=== PATIENT | male | born 1950 | race Caucasian/White ===

== ENCOUNTER 2017-03-15 09:41 | Inpatient (IN) | payer OTHER, MEDICARE ==
[~2017-03-15] VITALS: Ht 177.8 cm; Wt 100.0 kg
[2017-03-15 10:47] LABS: BASOPHILS % (AUTO) 0.4 % (0-1); EOSINOPHILS # (AUTO) 0.3 X10'3 (0-0.9); EOSINOPHILS % (AUTO) 2.9 % (0-6); HEMATOCRIT 42.7 % (42.0-52.0); HEMOGLOBIN 14.3 g/dl (14.0-17.9); LYMPHOCYTES # (AUTO) 1.9 X10'3 (1.1-4.8); LYMPHOCYTES % (AUTO) 20.2 % (21-51); MEAN CORPUSCULAR HEMOGLOBIN 29.7 PG (27.0-31.0); MEAN CORPUSCULAR HGB CONC 33.6 % (33.0-36.5); MEAN CORPUSCULAR VOLUME 88.4 FL (78-98); MEAN PLATELET VOLUME 10.3 FL (7.4-10.4); MONOCYTES % (AUTO) 11.3 % (2-12); NEUTROPHILS # (AUTO) 6.1 X10'3 (1.8-7.7); NEUTROPHILS % (AUTO) 65.2 % (42-75); PLATELET COUNT 194 X10'3 (140-440); RED BLOOD COUNT 4.83 X10'6 (4.70-6.10); RED CELL DISTRIBUTION WIDTH 13.1 % (11.5-14.5); WHITE BLOOD COUNT 9.3 X10'3 (4.5-11.0)
[2017-03-15 10:52] LABS: ALANINE AMINOTRANSFERASE 31 U/L (12-78); ALBUMIN 3.1 G/DL (3.4-5.0); ALKALINE PHOSPHATASE 58 IU/L (46-116); ANION GAP 6 (8-16); ASPARTATE AMINO TRANSFERASE 13 U/L (10-37); BILIRUBIN,TOTAL 0.5 MG/DL (0.1-1.0); BLOOD UREA NITROGEN 14 MG/DL (7-18); BUN/CREATININE RATIO 13.7 (5.4-32.0); CALCIUM 8.3 MG/DL (8.5-10.1); CHLORIDE 107 MMOL/L (99-107); CREATININE 1.02 MG/DL (0.60-1.10); GLUCOSE 163 MG/DL (70-104); POTASSIUM 3.7 MMOL/L (3.5-5.1); SODIUM 138 MMOL/L (135-145); TOTAL CARBON DIOXIDE 24.6 MMOL/L (24-32); TOTAL PROTEIN 6.2 G/DL (6.4-8.2); eGFR 73 ML/MIN
[2017-03-15 10:58] LABS: MAGNESIUM 1.9 MG/DL (1.5-2.4)
[2017-03-15] MEDS ORDERED: nitroGLYCERIN 0.4mg SUBLingual tab SL PRN ×2 (11:55→12:10)
[2017-03-15] MEDS ORDERED: magnesium 4gm in 100ml NS 100 ML IV PRN (11:55)
[2017-03-15] MEDS ORDERED: potassium Cl 20 mEq SR tablet PO PRN ×2 (11:55)
[2017-03-15] MEDS ORDERED: HYDROcodone/acetaminophen 5mg/325mg tablet PO PRN (11:55)
[2017-03-15] MEDS ORDERED: metoprolol tartrate 1mg/ml inj IV PRN (11:55)
[2017-03-15] MEDS ORDERED: magnesium Cl slow-release 64mg tablet PO PRN (11:55)
[2017-03-15] MEDS ORDERED: HYDROcodone/acetaminophen 10/325mg tab PO PRN (11:55)
[2017-03-15] MEDS ORDERED: aminophylline 250mg/10ml inj. IV PRN (11:55)
[2017-03-15] MEDS ORDERED: mag hydrox/Alum hydrox/simeth 30ml oral suspension PO PRN (11:55)
[2017-03-15] MEDS ORDERED: magnesium hydroxide 30ml (MOM) UD suspension PO PRN (11:55)
[2017-03-15] MEDS ORDERED: potassium Cl 40MEQ/NS 500ml 500 ML IV PRN ×2 (11:55)
[2017-03-15] MEDS ORDERED: ondansetron/PF 4mg/2ml inj IV PRN (11:55)
[2017-03-15] MEDS ORDERED: magnesium 2GM in 50ml NS 50 ML IV PRN (11:55)
[2017-03-15] MEDS ORDERED: acetaminophen 325mg tablet PO PRN ×2 (11:55)
[2017-03-15] MEDS ORDERED: regadenoson 0.4mg/5ml syringe IV ONE (11:55)
[2017-03-15] MEDS ORDERED: GLIP5TAB13 PO (11:58)
[2017-03-15] MEDS ORDERED: METF500T PO (11:58)
[2017-03-15] MEDS ORDERED: ACAR100T3 PO (11:58)
[2017-03-15] MEDS ORDERED: PRAZ5CAP PO (11:58)
[2017-03-15] MEDS ORDERED: AMLO2.5T2 PO (11:58)
[2017-03-15] MEDS ORDERED: TRAZ-146 PO (11:58)
[2017-03-15] MEDS ORDERED: NITR0.4T51 SL (11:58)
[2017-03-15] MEDS ORDERED: ROSU40TA PO (11:58)
[2017-03-15] MEDS ORDERED: DULO-31 PO (11:58)
[2017-03-15] MEDS ORDERED: ALPR-624 PO (11:58)
[2017-03-15] MEDS ORDERED: ISOS10TA8 PO (11:58)
[2017-03-15] MEDS ORDERED: LOSA25TA96 PO (11:58)
[2017-03-15] MEDS ORDERED: CHLO50TA PO (11:58)
[2017-03-15] MEDS ORDERED: LANTUS SQ (12:03)
[2017-03-15] MEDS ORDERED: INSU100V13 SQ (12:03)
[2017-03-15] MEDS ORDERED: ALPRAZolam 0.5mg tablet PO PRN (12:10)
[2017-03-15] MEDS ORDERED: MESSAGE TO PHARMACY PO ONE (12:15)
[2017-03-15] MEDS ORDERED: glucagon, human recombinant 1mg kit SUBCUT PRN (12:15)
[2017-03-15] MEDS ORDERED: insulin Lispro (HumaLOG) vial - multi-dose SQ SCH (12:15)
[2017-03-15] MEDS ORDERED: dextrose ORAL solution 15 GM/59 ML bottle PO PRN ×2 (12:15)
[2017-03-15] MEDS ORDERED: dextrose 50%-water 50ml dispensing syringe IV PRN ×2 (12:15)
[2017-03-15] MEDS: normal saline 1000ml 1,000 ML IV SCH ×2 (12:23→21:55)
[2017-03-15 12:31] LABS: HEMOGLOBIN A1C 9.6 % (4.5-6.2)
[2017-03-15] MEDS ORDERED: ISOS120T9 PO (12:46)
[2017-03-15] MEDS ORDERED: NIT5P TD (15:12)
[2017-03-15 19:45] VITALS: BP 128/71
[2017-03-15] MEDS: heparin, porcine 5000 units/ml vial SQ SCH (20:44)
[2017-03-15] MEDS ORDERED: ISOSORBIDE MONONITRATE 120 MG PO SCH (21:00)
[2017-03-15] MEDS ORDERED: isosorbide mononitrate 30mg tab.SR.24H PO SCH (21:00)
[2017-03-15] MEDS ORDERED: Insulin Detemir pen SQ SCH (21:00)
[2017-03-15] MEDS ORDERED: prazosin 1mg capsule PO SCH (21:00)
[2017-03-15] MEDS ORDERED: traZODone 50mg tablet PO SCH (21:00)
[2017-03-16] VITALS: BP 133/71
[2017-03-16] MEDS: normal saline 1000ml 1,000 ML IV SCH (01:32)
[2017-03-16 05:58] LABS: BASOPHILS % (AUTO) 0.2 % (0-1); EOSINOPHILS # (AUTO) 0.2 X10'3 (0-0.9); EOSINOPHILS % (AUTO) 2.4 % (0-6); HEMATOCRIT 39.4 % (42.0-52.0); HEMOGLOBIN 13.3 g/dl (14.0-17.9); LYMPHOCYTES # (AUTO) 1.9 X10'3 (1.1-4.8); LYMPHOCYTES % (AUTO) 20.9 % (21-51); MEAN CORPUSCULAR HEMOGLOBIN 30.1 PG (27.0-31.0); MEAN CORPUSCULAR HGB CONC 33.7 % (33.0-36.5); MEAN CORPUSCULAR VOLUME 89.1 FL (78-98); MEAN PLATELET VOLUME 10.4 FL (7.4-10.4); MONOCYTES % (AUTO) 10.6 % (2-12); NEUTROPHILS # (AUTO) 6.1 X10'3 (1.8-7.7); NEUTROPHILS % (AUTO) 65.9 % (42-75); PLATELET COUNT 172 X10'3 (140-440); RED BLOOD COUNT 4.43 X10'6 (4.70-6.10); RED CELL DISTRIBUTION WIDTH 13.1 % (11.5-14.5); WHITE BLOOD COUNT 9.3 X10'3 (4.5-11.0)
[2017-03-16 07:00] VITALS: BP 133/75
[2017-03-16] MEDS ORDERED: losartan 25mg tablet PO SCH (08:00)
[2017-03-16] MEDS: heparin, porcine 5000 units/ml vial SQ SCH (08:00)
[2017-03-16] MEDS ORDERED: K and/or MAG REPLACEMENT MC SCH (08:00)
[2017-03-16] MEDS ORDERED: chlorthalidone 25mg tablet PO SCH (08:00)
[2017-03-16] MEDS ORDERED: atorvastatin 20mg tablet PO SCH (08:00)
[2017-03-16] MEDS ORDERED: duloxetine 30mg CAPSULE.DR PO SCH (08:00)
[2017-03-16] MEDS ORDERED: amLODIPine 5mg tablet PO SCH (08:00)
[2017-03-16 08:06] LABS: LARGE PLATELETS FEW; PLATELET ESTIMATE NORMAL
[2017-03-16 09:17] LABS: ALANINE AMINOTRANSFERASE 29 U/L (12-78); ALBUMIN 3.1 G/DL (3.4-5.0); ALKALINE PHOSPHATASE 56 IU/L (46-116); ANION GAP 10 (8-16); ASPARTATE AMINO TRANSFERASE 12 U/L (10-37); BILIRUBIN,TOTAL 0.5 MG/DL (0.1-1.0); BLOOD UREA NITROGEN 15 MG/DL (7-18); CALCIUM 8.2 MG/DL (8.5-10.1); CHLORIDE 108 MMOL/L (99-107); CHOL/HDL RATIO 6.2 (0.00-4.99); CHOLESTEROL 156 MG/DL (0-200); GLUCOSE 183 MG/DL (70-104); HDL CHOLESTEROL 25 MG/DL (35-60); LDL CHOLESTEROL 99 MG/DL (50-100); MAGNESIUM 1.9 MG/DL (1.5-2.4); POTASSIUM 3.7 MMOL/L (3.5-5.1); SODIUM 143 MMOL/L (135-145); TOTAL CARBON DIOXIDE 24.7 MMOL/L (24-32); TOTAL PROTEIN 6.1 G/DL (6.4-8.2); TRIGLYCERIDES 300 MG/DL (20-135); eGFR 75 ML/MIN
== END 2017-03-16 11:00 | disposition home or self-care (01) | DRG 638 ==
LOC: ER 09:42 → ED HOLD 11:55 → SUR 3N 16:26
PROVIDERS: ADMIT Internal Medicine; ATTEND Internal Medicine
DX: E11.65 Type 2 diabetes mellitus with hyperglycemia (principal); I24.9 Acute ischemic heart disease, unspecified; I25.10 Atherosclerotic heart disease of native coronary artery without angina pectoris; E78.5 Hyperlipidemia, unspecified; F32.9 Major depressive disorder, single episode, unspecified; F41.1 Generalized anxiety disorder; G47.30 Sleep apnea, unspecified; I10 Essential (primary) hypertension; Z79.4 Long term (current) use of insulin; Z79.899 Other long term (current) drug therapy
CPT/HCPCS: 36415; 71045; 80053; 80061; 82948; 83036; 83605; 83735; 83880; 84484; 85025; 87040; 87070; 93005; 93306; 99285; J1644; J7030